=== PATIENT | male | born 1990 | race Caucasian/White ===

== ENCOUNTER 2016-07-09 13:35 | Emergency (ER) | payer SELFPAY ==
[2016-07-09 16:32] LABS: HEMOGLOBIN 15.9 gm/dl (14.0-17.5); RED BLOOD COUNT 5.88 M/UL (4.20-5.50); WHITE BLOOD COUNT 12.6 K/UL (4.5-11.0)
[2016-07-09 16:56] LABS: BUN/CREATININE RATIO 19 (0-10)
== END 2016-07-09 21:00 | disposition home or self-care (01) ==
LOC: ER1 13:35
PROVIDERS: Specialist/Technologist Athletic Trainer
DX: S83.91XA Sprain of unspecified site of right knee, initial encounter (principal); S80.811A Abrasion, right lower leg, initial encounter; W11.XXXA Fall on and from ladder, initial encounter
CPT/HCPCS: 36415; 70450; 73552; 73564; 73590; 73610; 80053; 85025; 93005; 96361; 96374; 96375; 99283; J2270; J2405; J7040